=== PATIENT | male | born 1970 | race Caucasian/White ===

== ENCOUNTER 2023-08-12 16:08 | Emergency (ER) | payer OTHER, SELFPAY ==
[2023-08-12 16:17] VITALS: BP 145/85; PULSE 66; RESP 18; TEMP 36.6; O2SAT 98; BMI 33.7
--- NOTE | 2023-08-12 17:14 | CRLHL7_ITS ---
For Patients: As a result of the Century Cures Act, medical imaging exams and procedure reports are released immediately into your electronic medical record. You may view this report before your referring provider. If you have questions, please contact your health care provider. CLINICAL HISTORY: Head trauma; headache. TECHNIQUE: Standard helical CT image acquisition of the brain was performed. COMPARISON: None available. FINDINGS: There is no intracranial hemorrhage, extra-axial collection, mass effect, or midline shift. Nair-white matter differentiation is preserved. The ventricles are normal in size and morphology for patient age. No displaced calvarial fracture. Fracture deformity of the nasal bones is favored to be chronic. The orbits are unremarkable. The paranasal sinuses are unremarkable. The mastoid air cells are unremarkable. IMPRESSION: No CT evidence of acute intracranial abnormality or closed-head injury. Please note that all CT scans at this facility use dose modulation, iterative reconstruction, and/or weight-based dosing when appropriate to reduce radiation dose to as low as reasonably achievable. Dictated by Dennis Paul MD @ 08/12/2023 5:42:13 PM (Electronically Signed)
--- NOTE | 2023-08-12 17:15 | ED_ITS ---
HPI - General Adult General Chief complaint: Head Injury/Pain Stated complaint: Head injury Time Seen by Provider: 08/12/23 17:00 History of Present Illness HPI narrative: This is a pleasant 52-year-old generally healthy male who presents to the ER today for a headache status post a work related head injury that occurred 2 days ago. He works for the [employer]. 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 He had apparently uses chainsaw to cut part of a horizontal branch off of a tree. He that the remaining part of the branch was stable but it was not. It fell off and struck him in the head. He was wearing his hard hat but the heart had was knocked off his head during the impact. The branch was a few feet long and roughly 8-12 inches in diameter. He was not knocked out but he was momentarily stunned and dazed. He noted some dizziness and a little bit of confusion and personality change after the accident. Since that he has had a fairly persistent headache. He has had some nausea. He has had persistently foggy thinking. He was able to go to work yesterday but had persistent symptoms today. He was told to come into the ER by his boss No neck pain. No numbness or tingling in his arms or legs. No known seizure activity. No diplopia. No slurred speech. He does not take any blood thinners. No history of bleeding disorder. Related Data Home Medications Medication Instructions Recorded Confirmed pantoprazole 20 mg tablet,delayed 20 mg PO DAILY 08/12/23 08/12/23 release Allergies Allergy/AdvReac Type Severity Reaction Status Date / Time Codiene Allergy Unknown Uncoded 08/12/23 15:12 PCN Allergy Unknown Uncoded 08/12/23 15:12 [facility] Medical History (Updated 08/12/23 @ 18:40 by Israel Bullock RN) No significant past medical history Surgical History (Updated 08/12/23 @ 18:40 by Israel Bullock RN) No significant past surgical history Social History Smoking Status: Never smoker Second hand tobacco smoke exposure: No How often do you have a drink containing alcohol: never How often do you have six or more drinks on one occasion: Never AUDIT-C Alcohol total score: 0 Non-prescribed substance use: denies use Exam Narrative: Exam Narrative: Constitutional: Appears well-developed and well-nourished. Alert. Conversant. Non toxic. HENT: Head: Atraumatic. Nose: Nose normal. No depressed skull fracture, [place] Eyes, Varghese's sign, or hemotympanum. Face normal. TMs normal Mouth/Throat: Oral mucosa is clear and moist. no trismus. Pharynx normal. Tonsils symmetric. No tonsillar enlargement, erythema, or exudate. Eyes: Conjunctivae normal. EOM normal. Pupils equal, round, and reactive to light. No scleral icterus. Neck: Normal range of motion. Neck supple. No tracheal deviation present. Cardiovascular: Normal rate, regular rhythm. No gallop. No friction rub. No murmur heard. Symmetric radial artery pulses Pulmonary/Chest: Effort normal. No stridor. No respiratory distress. No wheezes. No rales. No rhonchi . No tenderness. Abdominal: Soft.No distension. No mass. No tenderness. No rebound. No guarding. Musculoskeletal: RUE: Normal range of motion. No tenderness. No deformity LUE: Normal range of motion. No tenderness. No deformity RLE: Normal range of motion. No edema. No tenderness. No deformity LLE: Normal range of motion. No edema. No tenderness. No deformity Neurological: Mental status normal. Attention normal. Alert and oriented x3. GCS 15. Memory normal. Speech fluent. Cognition normal. Cranial Nerves intact II-XII except I did not formally test gag or visual acuity. EOMI. Palate elevates symmetrically and tongue protrudes in the midline. 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 Finger to nose and coordination normal. Gait normal. Skin: Skin is warm and dry. No rash noted. No pallor. Normal capillary refill. Psychiatric: Normal mood. Normal affect. Const: Vital Signs, click to edit/add: Vital Signs - 24 hr 08/12/23 16:17 08/12/23 17:35 08/12/23 18:44 Temperature 97.9 F 97.9 F 97.9 F Pulse Rate [Right Pulse Oximeter] 66 74 Respiratory Rate 18 18 Blood Pressure [Ri ght Upper Arm] 145/85 H 135/74 Pulse Oximetry 98 98 Oxygen Delivery Me thod Room Air Room Air 08/12/23 18:48 Temperature 97.9 F Pulse Rate [Right Pulse Oximeter] 74 Respiratory Rate 18 Blood Pressure [Ri ght Upper Arm] 135/74 Pulse Oximetry Oxygen Delivery Me thod Course Vital Signs Vital signs: Initial Vital Signs Temperature 97.9 F 08/12/23 16:17 Temperature Source Temporal Artery Scan 08/12/23 16:17 Pulse Rate 66 08/12/23 16:17 Pulse Rhythm Regular 08/12/23 16:17 Respiratory Rate 18 08/12/23 16:17 Blood Pressure 145/85 H 08/12/23 16:17 Blood Pressure Mean 105 08/12/23 16:17 Blood Pressure Position Sitting 08/12/23 16:17 Pulse Oximetry 98 08/12/23 16:17 Oxygen Delivery Method Room Air 08/12/23 16:17 Vital Signs Temperature 97.9 F 08/12/23 16:17 Pulse Rate 66 08/12/23 16:17 Respiratory Rate 18 08/12/23 16:17 Blood Pressure 145/85 H 08/12/23 16:17 Pulse Oximetry 98 08/12/23 16:17 Oxygen Delivery Method Room Air 08/12/23 16:17 Temperature 97.9 F 08/12/23 18:48 Pulse Rate 74 08/12/23 18:48 Respiratory Rate 18 08/12/23 18:48 Blood Pressure 135/74 08/12/23 18:48 Pulse Oximetry 98 08/12/23 18:44 Oxygen Delivery Method Room Air 08/12/23 18:44 Medical Decision Making MDM Narrative Medical decision making narrative: This is a pleasant 52-year-old gentleman presenting to the ER today with 3 days of headache, foggy thinking, nausea, intermittent blurred vision after he was struck in the top of the head by a heavy branch. The injury occurred 3 days ago while he was at work. He was sent to the ER today by the nurse triage line. Clinically the patient's symptoms could be consistent with concussion. However given the persistence and severity of his headache were concerned about possible intracranial hemorrhage. Discussed risks and benefits of CT. Patient wanted to go ahead. CT fortunately is negative for intracranial bleeding, skull fracture, or other acute abnormality. Suspect the patient's symptoms are probably due to concussion. Discussed precautions for return to the ER. Red flags reviewed. Discussed outpatient management of concussion, light duty, avoidance of dangerous activities. Need for follow-up with primary care within a week not completely improved. Questions answered. Patient comfortable with plan for discharge. Imaging Data CT scan - head: Radiologist's impression: IMPRESSION: No CT evidence of acute intracranial abnormality or closed-head injury. Discharge Plan Discharge Clinical Impression: Concussion without loss of consciousness, Closed head injury Patient Disposition: Home, Self-Care Condition: Stable Instructions: Concussion (ED), Cognitive Disorders after Traumatic Brain Injury (ED) Additional Instructions: As we discussed, it will likely take time for your concussion to heal. Wire concussion is healing it is okay to perform light activities. Light house chores and walking or generally fine. However if perform any activities causing headache, foggy thinking, or other worsening symptoms, you should refrain from that activity. You should avoid dangerous activities and strenuous physical activity until your symptoms are completely resolved. If you have worsening symptoms such as severe headache, very blurry vision, confusion, vomiting more than once, seizure, forgetfulness, or worsening neck pain, please come back to the ER right away. If you are not completely improved within 7 days, see your doctor or return to the ER for recheck. Prescriptions: No Action pantoprazole 20 mg tablet,delayed release (DR/EC) 20 mg PO DAILY Stand Alone Forms: [employer] Info Instructions
[2023-08-12 17:35] VITALS: TEMP 36.6
[2023-08-12] MEDS: IBUPROFEN 200 MG TABLET 600 MG PO (17:35)
[2023-08-12 18:44] VITALS: BP 135/74; PULSE 74; RESP 18; TEMP 36.6; O2SAT 98
[2023-08-12 18:48] VITALS: BP 135/74; PULSE 74; RESP 18; TEMP 36.6
--- NOTE | 2023-08-15 13:45 | ED.NURSE ---
Patient called wondering if he should return to work today or wait the full 7 days. Reread the work excuse note back to the patient. Patient stated he does not feel 100% yet. Recommended he reach out to his PCP if he has concerns or wait the full 7 days as directed in the work note. Patient had no further questions at this time.
== END 2023-08-12 18:48 | disposition home or self-care (01) ==
LOC: ED 18:42
PROVIDERS: Emergency Provider Emergency Medicine; PCP Family Medicine
DX: S06.0X0A Concussion without loss of consciousness, initial encounter (principal); W22.8XXA Striking against or struck by other objects, initial encounter; Y99.0 Civilian activity done for income or pay
CPT/HCPCS: 70450; 99283; 99284; A9270